=== PATIENT | female | born 1945 | race Caucasian/White ===

== ENCOUNTER → 2016-11-02 | Day surgery (SDC) | payer MEDICARE, OTHER ==
[~2016-11-02] MED LIST: ASPI81TA2 PO; CRESTOR20 MG PO; DIAZEPAM10 MG PO; GABA600T PO; IV RINGERS,LACTATED 1000ML 1,000 ML IV SCH; LABETALOL 20 MG/4 ML DISP.SYRIN. ONE; LIDOCAINE 2% PF Vial for OR 5 ML VIAL. ONE; LOSA100T6 PO; METF500T4 PO; METO25TA4 PO; PROPOFOL 40 ML IV ONE
[2016-11-02 11:11] VITALS: BP 159/78
== END | disposition home or self-care (01) ==
LOC: ENDOS 09:21
PROVIDERS: ATTEND Internal Medicine Gastroenterology
DX: Z12.11 Encounter for screening for malignant neoplasm of colon (principal); K64.0 First degree hemorrhoids; K57.30 Diverticulosis of large intestine without perforation or abscess without bleeding; Z80.0 Family history of malignant neoplasm of digestive organs; I10 Essential (primary) hypertension; E78.00 Pure hypercholesterolemia, unspecified; I48.91 Unspecified atrial fibrillation; E11.9 Type 2 diabetes mellitus without complications; F41.9 Anxiety disorder, unspecified
CPT/HCPCS: G0105; J2704; J3490